=== PATIENT | female | born 1965 | race Caucasian/White ===

== ENCOUNTER 2025-06-23 03:28 | Emergency (ER) | payer MEDICARE, SELFPAY ==
[2025-06-23] MEDS ORDERED: Acetaminophen 500 MG TAB ONE (03:34)
[2025-06-23] MEDS ORDERED: Prochlorperazine 10 MG/2 ML VIAL ONE (03:46)
[2025-06-23] MEDS ORDERED: diphenhydrAMINE 25 MG CAP ONE (03:49)
[2025-06-23] MEDS ORDERED: Ondansetron PF 4 MG/2 ML Vial ONE (03:49)
[2025-06-23 03:52] LABS: #Basophils 0.08 10x3/uL (0.0-0.2); #Eosinophils 0.11 10x3/uL (0.0-0.7); #Monocytes 0.44 10x3/uL (0.11-0.59); #Neutrophils 2.48 10x3/uL (1.40-6.50); %Basophils 1.7 % (0.0-1.0); %Eosinophils 2.4 % (0.0-10.0); %Lymphocytes 32.9 % (21.0-51.0); %Monocytes 9.5 % (0.0-10.0); %Neutrophils 53.3 % (42.0-75.0); Hematocrit 39.7 % (36.0-47.0); Hemoglobin 13.9 g/dL (12.0-16.0); Mean Corpuscular Hemoglobin 31.7 pg (27.0-31.0); Mean Corpuscular Volume 90.4 fL (78.0-98.0); Platelet Count 227 10x3/uL (130-400); Red Blood Cell (RBC) Count 4.39 mill/uL (4.20-5.40); White Blood Cell (WBC) Count 4.65 10x3/uL (4.8-10.8)
[2025-06-23 04:07] LABS: ALT (SGPT) 14 U/L (Less than 34); AST (SGOT) 27 U/L (11-34); Albumin 3.9 g/dL (3.1-4.5); Alkaline Phosphatase 59 U/L (40-110); Anion Gap 17 mmol/L (10-20); BUN (Urea Nitrogen) 19 mg/dL (9.8-20.1); Bilirubin, Total 0.2 mg/dL (0.3-1.2); Calc. Creatinine Clearance 0 mL/min (70-130); Calcium 9.0 mg/dL (7.8-10.44); Carbon Dioxide 27 mmol/L (23-31); Chloride 101 mmol/L (98-107); Globulin 2.9 g/dL (2.4-3.5); Glucose 127 mg/dL (80-115); Potassium 3.3 mmol/L (3.5-5.1); Sodium 142 mmol/L (136-145)
== END 2025-06-23 05:57 | disposition home or self-care (01) ==
LOC: ERS 03:28
DX: G43.909 Migraine, unspecified, not intractable, without status migrainosus (principal); E87.6 Hypokalemia; I10 Essential (primary) hypertension
CPT/HCPCS: 70496; 70498; 80053; 85025; 93005; 96365; 96375; J0780; J2405